=== PATIENT | female | born 1975 | race Asian ===

== ENCOUNTER 2021-04-15 19:20 | Emergency (ER) | payer OTHER ==
[~2021-04-15] VITALS: Ht 170.2 cm; Wt 126.6 kg
[2021-04-15 22:57] LABS: PLATELET COUNT 285 K/uL (152-353)
[2021-04-15 23:03] LABS: POTASSIUM 4.4 mmol/L (3.6-5.2)
[2021-04-16 02:00] VITALS: BP 154/74; TEMP 98
== END 2021-04-16 02:00 | disposition home or self-care (01) ==
LOC: ED 19:20
PROVIDERS: Family Medicine
DX: L03.116 Cellulitis of left lower limb (principal); S91.115A Laceration without foreign body of left lesser toe(s) without damage to nail, initial encounter; Z79.4 Long term (current) use of insulin; Z51.81 Encounter for therapeutic drug level monitoring; N39.0 Urinary tract infection, site not specified; X58.XXXA Exposure to other specified factors, initial encounter; Y92.89 Other specified places as the place of occurrence of the external cause
CPT/HCPCS: 36415; 80053; 81000; 83605; 85027; 85610; 85730; 87077; 87086; 87088; 87186; 90471; 90715; 96360; 96365; 99284; J0696

== ENCOUNTER 2021-04-22 16:48 | Inpatient (IN) | payer OTHER ==
[~2021-04-22] VITALS: Ht 170.2 cm; Wt 128.5 kg
[2021-04-22 16:48] VITALS: BP 149/76; TEMP 98.7
[2021-04-22 18:35] LABS: PLATELET COUNT 363 K/uL (152-353)
[2021-04-22 18:40] LABS: POTASSIUM 3.9 mmol/L (3.6-5.2)
[2021-04-22 23:59] VITALS: BP 145/85; TEMP 98.5
[2021-04-23] VITALS (7 sets, daily range): BP systolic 115–191; BP diastolic 39–93; TEMP 98.4–99.4; Ht 170.2 cm; Wt 128.5 kg
[2021-04-23 05:29] LABS: PLATELET COUNT 364 K/uL (152-353)
[2021-04-23 05:57] LABS: POTASSIUM 3.7 mmol/L (3.6-5.2)
[2021-04-23] MEDS ORDERED: ISOS30TA17 PO (20:14)
[2021-04-23] MEDS ORDERED: CIMETIDINE400 MG PO (20:17)
[2021-04-23] MEDS ORDERED: INSULIN LI100 UNIT/M SC (20:18)
[2021-04-23] MEDS ORDERED: MUPIROCIN2 % EX (20:19)
[2021-04-23] MEDS ORDERED: CLINDAMYCIN HY300 MG PO (20:21)
[2021-04-23] MEDS ORDERED: LEVOFLOXACIN750 MG PO (20:21)
[2021-04-23] MEDS ORDERED: SEMGLEE SC (20:25)
[2021-04-24 04:10] VITALS: BP 152/86; TEMP 98.06
[2021-04-24 05:27] LABS: PLATELET COUNT 375 K/uL (152-353)
[2021-04-24 05:32] LABS: POTASSIUM 3.7 mmol/L (3.6-5.2)
[2021-04-24 08:18] VITALS: BP 187/33; TEMP 99
[2021-04-24 12:30] VITALS: BP 138/71; TEMP 98
[2021-04-24 16:00] VITALS: BP 172/83; TEMP 99
[2021-04-24 20:00] VITALS: BP 144/61; TEMP 100.3
[2021-04-25] VITALS: BP 123/57; TEMP 98.7
[2021-04-25 04:00] VITALS: BP 130/67; TEMP 97.7
[2021-04-25 05:14] LABS: PLATELET COUNT 362 K/uL (152-353)
[2021-04-25 05:32] LABS: POTASSIUM 3.7 mmol/L (3.6-5.2)
[2021-04-25 08:01] VITALS: BP 155/93; TEMP 98.5
[2021-04-25 12:00] VITALS: BP 145/71; TEMP 98.3
[2021-04-25 16:00] VITALS: BP 165/62; TEMP 98.2
[2021-04-25 20:00] VITALS: BP 161/74; TEMP 97.8
[2021-04-26] VITALS: BP 130/64; TEMP 98
[2021-04-26 04:00] VITALS: BP 121/54; TEMP 97.7
[2021-04-26 05:17] LABS: PLATELET COUNT 375 K/uL (152-353)
[2021-04-26 05:34] LABS: POTASSIUM 3.8 mmol/L (3.6-5.2)
[2021-04-26 08:00] VITALS: BP 171/75; TEMP 97.7
[2021-04-26 12:00] VITALS: BP 161/57; TEMP 97.7
[2021-04-26 16:00] VITALS: BP 128/69; TEMP 98
[2021-04-26 20:26] VITALS: BP 169/78; TEMP 98.7
[2021-04-27 00:18] VITALS: BP 151/35; TEMP 99.5
[2021-04-27 03:53] VITALS: BP 143/66; TEMP 98.5
[2021-04-27 05:01] LABS: PLATELET COUNT 327 K/uL (152-353)
[2021-04-27 05:13] LABS: POTASSIUM 4.4 mmol/L (3.6-5.2)
[2021-04-27 08:00] VITALS: BP 132/62; TEMP 98.6
[2021-04-27 12:00] VITALS: BP 179/81; TEMP 98.4
[2021-04-27] MEDS ORDERED: COREG 6.25MG TAB PO (15:46)
[2021-04-27] MEDS ORDERED: ATOR20TA2 PO (15:46)
[2021-04-27 16:00] VITALS: BP 173/77; TEMP 98.4
== END 2021-04-27 19:00 | disposition short-term general hospital (02) | DRG 300 ==
LOC: ED 16:48 → MED/SURG 19:50
PROVIDERS: Emergency Medicine; ADMIT Internal Medicine Endocrinology, Diabetes & Metabolism; ATTEND Internal Medicine Endocrinology, Diabetes & Metabolism
DX: E11.52 Type 2 diabetes mellitus with diabetic peripheral angiopathy with gangrene (principal); L97.528 Non-pressure chronic ulcer of other part of left foot with other specified severity; I96 Gangrene, not elsewhere classified; Z68.41 Body mass index [BMI] 40.0-44.9, adult; E11.621 Type 2 diabetes mellitus with foot ulcer; E11.65 Type 2 diabetes mellitus with hyperglycemia; Z79.4 Long term (current) use of insulin; I10 Essential (primary) hypertension; I25.10 Atherosclerotic heart disease of native coronary artery without angina pectoris; Z86.73 Personal history of transient ischemic attack (TIA), and cerebral infarction without residual deficits; E66.01 Morbid (severe) obesity due to excess calories
CPT/HCPCS: 36415; 80048; 80053; 80202; 84484; 85027; 85610; 85652; 86140; 87040; 87070; 87205; 87635; 93005; 96365; 99284; A9576; J1335; J1650; J1815; J1885; J1956; J2543; J3370; U0003